=== PATIENT | female | born 1990 | race Caucasian/White ===

== ENCOUNTER 2018-05-18 11:08 | Inpatient (IN) | payer OTHER ==
[~2018-05-18] VITALS: Ht 152.4 cm; Wt 70.3 kg
[~2018-05-18 11:08] MED LIST: ALBU-136 IH; IBUP-974 PO; PREN-385 PO
[2018-05-18] MEDS ORDERED: LACTATED RINGERS 1,000 ML IV SCH (12:01)
[2018-05-18] MEDS ORDERED: CARBOPROST 250 MCG/ML AMP IM PRN (12:05)
[2018-05-18] MEDS ORDERED: OXYTOCIN 20 UNITS in LACTATED RINGERS 1,000 ML IV SCH (12:05)
[2018-05-18] MEDS ORDERED: OXYTOCIN 10 UNITS/ML VIAL IM SCH (12:05)
[2018-05-18] MEDS ORDERED: METHYLERGONOVINE 0.2 MG/ML AMP IM PRN ×2 (12:05→20:25)
[2018-05-18] MEDS ORDERED: PROMETHAZINE 25 MG/ML VIAL IM/IVP PRN (12:05)
[2018-05-18 12:36] LABS: BASOPHILS % (AUTO) 0.3 % (0.0-2.0); EOSINOPHILS # (AUTO) 0.1 K/uL (0-0.4); EOSINOPHILS % (AUTO) 0.6 % (0.0-4.0); HEMATOCRIT 38.9 % (36-48); LYMPHOCYTES # (AUTO) 2.1 K/uL (2.5-16.5); LYMPHOCYTES % (AUTO) 18.8 % (20.5-51.1); MEAN CORPUSCULAR HEMOGLOBIN 31 pg (27-31); MEAN CORPUSCULAR HGB CONC 34 g/dL (33-37); MEAN CORPUSCULAR VOLUME 91.7 fL (80-94); MONOCYTES # (AUTO) 0.9 K/uL (0.8-1.0); MONOCYTES % (AUTO) 7.7 % (1.7-9.3); NEUTROPHILS % (AUTO) 72.6 % (42.2-75.2); PLATELET COUNT (AUTO) 246 K/uL (140-450); RED BLOOD CELL COUNT(AUTO) 4.25 MIL/uL (4.20-5.40); RED CELL DISTRIBUTION WIDTH 13.9 % (11.6-13.7); WHITE BLOOD COUNT (AUTO) 11.1 K/uL (4.8-10.8)
[2018-05-18 12:42] LABS: APPEARANCE,URINE CLEAR (CLEAR); BILIRUBIN,URINE NEGATIVE (NEGATIVE); BLOOD, URINE NEGATIVE (NEGATIVE); COLOR,URINE YELLOW (YELLOW); LEUKOCYTE ESTERASE ,URINE NEGATIVE (NEGATIVE); NITRITE, URINE NEGATIVE (NEGATIVE); UGLUCOSE NEGATIVE (NEGATIVE)
[2018-05-18 12:56] LABS: ANION GAP 14.9 (8-16); CARBON DIOXIDE 20.8 mmol/L (21-32); CREATININE 0.4 mg/dL (0.6-1.3); POTASSIUM 3.7 mmol/L (3.5-5.1)
[2018-05-18 13:02] LABS: ALBUMIN 2.5 g/dL (3.4-5.0); TOTAL BILIRUBIN 0.4 mg/dL (0.0-1.0)
[2018-05-18] MEDS ORDERED: PREN-546 PO (13:31)
[2018-05-18] MEDS ORDERED: MISOPROSTOL 25 MCG TAB VG PRN (15:15)
[2018-05-18] MEDS ORDERED: MISOPROSTOL 25 MCG TAB ONE (15:42)
[2018-05-18] MEDS ORDERED: NALBUPHINE 10 MG/ML AMP ONE (17:58)
[2018-05-18] MEDS ORDERED: PROMETHAZINE 25 MG/ML VIAL ONE (17:58)
[2018-05-18] MEDS ORDERED: NALBUPHINE 10 MG/ML AMP IVP ONE (18:15)
[2018-05-18] MEDS ORDERED: OXYTOCIN 20 UNITS/LR PREMIX 1,000 ML IV ONE (20:23)
[2018-05-18] MEDS ORDERED: MEASLES, MUMPS, AND RUBELLA 1 VIAL SQVAC PRN (20:25)
[2018-05-18] MEDS ORDERED: BENZOCAINE/MENTHOL 20%-0.5% 60 GM CAN TP PRN (20:25)
[2018-05-18] MEDS ORDERED: HYDROcodone/APAP 5/325 MG 1 TAB TAB PO PRN (20:25)
[2018-05-18] MEDS ORDERED: IBUPROFEN 800 MG TAB PO PRN (20:25)
[2018-05-18] MEDS ORDERED: TEMAZEPAM 15 MG CAP PO PRN (20:25)
[2018-05-18] MEDS ORDERED: OXYTOCIN 10 UNITS/ML VIAL IM PRN (20:25)
[2018-05-18] MEDS ORDERED: DOCUSATE SOD/SENNA 50/8.6 MG 1 TAB PO SCH (21:00)
[2018-05-18] MEDS ORDERED: BUPIVACAINE 0.125%/NS PREMIX 250 ML ONE (21:14)
--- NOTE | 2018-05-19 06:13 | NUR ---
PATIENT HAS BEEN SCREENED AND CATEGORIZED LOW NUTRITION RISK. PATIENT WILL BE SEEN WITHIN 7 DAYS OF ADMISSION. 05/25/18 NESHA VALVERDE MS, RDN
[2018-05-19] MEDS ORDERED: BUPIVACAINE 0.125%/NS PREMIX 250 ML ONE (07:53)
[2018-05-19] MEDS ORDERED: OXYTOCIN 10 UNITS/ML VIAL ONE (09:45)
[2018-05-19] MEDS ORDERED: HYDROcodone/APAP 5/325 MG 1 TAB TAB ONE (13:12)
[2018-05-19] MEDS: guaiFENesin 20 MG/ML UDC PO PRN ×2 (16:02→21:33)
[2018-05-19] MEDS: oxyCODONE/APAP 5/325 MG 1 TAB TAB PO PRN (21:31)
[2018-05-20] MEDS: oxyCODONE/APAP 5/325 MG 1 TAB TAB PO PRN ×4 (04:14→19:51)
[2018-05-20 07:29] LABS: HEMATOCRIT 38.6 % (36-48); HEMOGLOBIN 12.8 g/dL (12.0-16.0)
[2018-05-20] MEDS: guaiFENesin 20 MG/ML UDC PO PRN ×2 (08:49→19:52)
[2018-05-21] MEDS: guaiFENesin 20 MG/ML UDC PO PRN (04:48)
[2018-05-21] MEDS: oxyCODONE/APAP 5/325 MG 1 TAB TAB PO PRN (04:48)
== END 2018-05-21 14:23 | disposition home or self-care (01) | DRG 560 ==
LOC: OBSVTOIN 11:08 → MLD 11:08 → MFCC 05-19 13:55
PROVIDERS: ADMIT Obstetrics & Gynecology; ATTEND Obstetrics & Gynecology
PROC: 10E0XZZ Delivery of Products of Conception, External Approach (ICD-10-PCS; principal; 2018-05-19)
PROC: 3E033VJ Introduction of Other Hormone into Peripheral Vein, Percutaneous Approach (ICD-10-PCS; 2018-05-19)
PROC: 10907ZC Drainage of Amniotic Fluid, Therapeutic from Products of Conception, Via Natural or Artificial Opening (ICD-10-PCS; 2018-05-19)
PROC: 3E0R3BZ Introduction of Anesthetic Agent into Spinal Canal, Percutaneous Approach (ICD-10-PCS; 2018-05-19)
PROC: 00HU33Z Insertion of Infusion Device into Spinal Canal, Percutaneous Approach (ICD-10-PCS; 2018-05-19)
DX: O70.0 First degree perineal laceration during delivery (principal); Z37.0 Single live birth; Z3A.00 Weeks of gestation of pregnancy not specified
CPT/HCPCS: 36415; 51702; 59200; 80053; 81003; 85018; 85025; 86592; 86886; 86900; 86901; J2300; J2550; J2590; J3490; J7120